=== PATIENT | female | born 1970 | race Two or more races ===

== ENCOUNTER 2016-12-29 17:38 | Emergency (ER) | payer SELFPAY ==
[2016-12-29] MEDS ORDERED: NORMAL SALINE 1000 ML 1,000 ML IV ONE (18:21)
[2016-12-29 18:49] LABS: ABSOLUTE BASOPHILS # (AUTO) 0.1 10^3/uL (0.0-0.2); ABSOLUTE LYMPHOCYTES (AUTO) 1.8 10^3/uL (0.5-4.7); ABSOLUTE MONOCYTES (AUTO) 1.6 10^3/uL (0.1-1.4); ABSOLUTE NEUT (AUTO) 14.2 10^3/uL (1.7-8.2); BASOPHILS % (AUTO) 0.3 % (0-2); EOSINOPHILS % (AUTO) 0.1 % (0-6); HEMATOCRIT 39.9 % (36.0-47.0); HGB HCT DIFFERENCE 2.1; LYMPHOCYTES % (AUTO) 10.3 % (13-45); MEAN CORPUSCULAR HEMOGLOBIN 28.7 pg (27.0-33.4); MEAN CORPUSCULAR VOLUME 82 fl (80-97); RED BLOOD COUNT 4.86 10^6/uL (3.72-5.28); RED CELL DISTRIBUTION WIDTH 13.3 % (11.5-14.0); SEGMENTED NEUTROPHILS % (AUTO) 80.3 % (42-78); WHITE BLOOD COUNT 17.6 10^3/uL (4.0-10.5)
[2016-12-29 18:53] LABS: APPEARANCE,URINE SLIGHTLY-CLOUDY; BILIRUBIN,URINE NEGATIVE (NEGATIVE); GLUCOSE, URINE >=500 mg/dL (NEGATIVE); KETONES,URINE 80 mg/dL (NEGATIVE); LEUKOCYTE ESTERASE,URINE SMALL (NEGATIVE); NITRITE,URINE POSITIVE (NEGATIVE); PROTEIN,URINE 100 mg/dL (NEGATIVE); URINE SPECIFIC GRAVITY 1.022
[2016-12-29 19:08] LABS: ALANINE AMINOTRANSFERASE 25 U/L (9-52); ALBUMIN 3.7 g/dL (3.5-5.0); ALKALINE PHOSPHATASE 147 U/L (38-126); ANION GAP 14 (5-19); ASPARTATE AMINO TRANSFERASE 12 U/L (14-36); BILIRUBIN,DIRECT 0.6 mg/dL (0.0-0.4); BILIRUBIN,TOTAL 1.1 mg/dL (0.2-1.3); BLOOD UREA NITROGEN 14 mg/dL (7-20); CALCIUM 8.9 mg/dL (8.4-10.2); CARBON DIOXIDE 23 mmol/L (22-30); CHLORIDE 92 mmol/L (98-107); CREATININE RESULT 0.56 mg/dL (0.52-1.25); GLUCOSE 350 mg/dL (75-110); POTASSIUM 3.7 mmol/L (3.6-5.0); SODIUM 129.3 mmol/L (137-145); TOTAL PROTEIN 7.2 g/dL (6.3-8.2)
[2016-12-29] MEDS ORDERED: RINGERS SOLUTION,LACTATED 1,000 ML IV ONE (19:17)
[2016-12-29] MEDS ORDERED: CEFTRIAXONE 1 GM/D5W RTU 1 GM/50 ML RTUPB IV ONE (19:18)
[2016-12-29] MEDS ORDERED: INSULIN LISPRO 100 UNIT/ML 3 ML VIAL SUBCUT ONE (20:06)
--- NOTE | 2016-12-29 20:09 | ER Document Report ---
ED General - General Chief Complaint: High Blood Sugar Stated Complaint: BLOOD SUGAR ISSUES Time Seen by Provider: 12/29/16 18:36 Notes: Patient is a 46-year-old female with uva-srvfsrh-[id number] type 2 diabetes who presents with concerns of hypoglycemia and generalized malaise. Patient states that for "many months" she has had high blood sugars and felt quite fatigued. She has not recently seen a primary care doctor stating "they are always closed ". She takes metformin 500 mg twice daily and has been on this regimen for several years. She states that her blood sugars are regularly in the 300s at home. She became concerned today when they elevated into the 4-500s prompting her to come to the emergency department. She notes that she has had some mild dysuria with associated nausea for the past several days. She has had similar symptoms in the past with a urinary tract infection. She has not noted that anything seems to improve or worsen her symptoms. She denies any headache, neck pain, chest pain, fever, altered mental status or vomiting. She has never had to be hospitalized for her diabetes. TRAVEL OUTSIDE OF THE [place] IN LAST 30 DAYS: No - Related Data Allergies/Adverse Reactions: No Known Allergies Allergy (Verified 12/29/16 17:48) Past Medical History - General Information source: Patient - Social History Smoking Status: Current Every Day Smoker Chew tobacco use (# tins/day): Yes Frequency of alcohol use: None Drug Abuse: None Lives with: Family Family History: Reviewed & Not Pertinent - Past Medical History Cardiac Medical History: Reports: Hx Hypertension Endocrine Medical History: Reports: Hx Diabetes Mellitus Type 2 Renal/ Medical History: Denies: Hx Peritoneal Dialysis Surgical Hx: Negative - Immunizations Hx Diphtheria, Pertussis, Tetanus Vaccination: - unknown Review of Systems - Review of Systems Notes: Constitutional: Negative for fever. HENT: Negative for sore throat. Eyes: Negative for visual changes. Cardiovascular: Negative for chest pain. Respiratory: Negative for shortness of breath. Gastrointestinal: Negative for abdominal pain, positive for nausea Genitourinary: Positive for dysuria. Musculoskeletal: Negative for back pain. Skin: Negative for rash. Neurological: Negative for headaches, weakness or numbness. 10 point ROS negative except as marked above and in HPI. Physical Exam - Vital signs Vitals: Temp Pulse Resp BP Pulse Ox 100.3 F 113 H 20 135/85 H 98 12/29/16 17:48 12/29/16 17:48 12/29/16 17:48 12/29/16 17:48 12/29/16 17:48 Interpretation: Tachycardic Notes: PHYSICAL EXAMINATION: GENERAL: Well-appearing, well-nourished and in no acute distress. HEAD: Atraumatic, normocephalic. EYES: Pupils equal round and reactive to light, extraocular movements intact, sclera anicteric, conjunctiva are normal. ENT: nares patent, oropharynx clear without exudates. Moderately dry mucous membranes. NECK: Normal range of motion, supple without lymphadenopathy LUNGS: Breath sounds clear to auscultation bilaterally and equal. No wheezes rales or rhonchi. HEART: Regular rate and rhythm without murmurs ABDOMEN: Soft, nontender, normoactive bowel sounds. No guarding, no rebound. No masses appreciated. EXTREMITIES: Normal range of motion, no pitting or edema. No cyanosis. NEUROLOGICAL: No focal neurological deficits. Moves all extremities spontaneously and on command. PSYCH: Normal mood, normal affect. SKIN: Warm, Dry, normal turgor, no rashes or lesions noted. Course - Re-evaluation Re-evalutation: 12/29/16 20:05 Presentation of hyperglycemia and fatigue. There is no evidence of HHS or diabetic ketoacidosis on laboratories or based on clinical history. Patient's vitals are within normal limits. Patient has had nausea and flank tenderness. Her urinalysis does reveal findings consistent with acute urinary tract infection. A culture has been sent. Treatment with insulin and IV fluids given here in the emergency department with appropriate response of the blood sugar. She was also given a dose of IV ceftriaxone. Patient does have primary care follow-up. Patient was instructed to increase their metformin and advised they will likely need to increase dietary modification and may also need medication changes. Indications to return to emergency department as well as the importance of close outpatient follow-up were discussed at length. Patient verbalized understanding of the need for close follow-up and indications to return to the ED. - Vital Signs Vital signs: Temp Pulse Resp BP Pulse Ox 100.3 F 92 18 104/55 L 98 12/29/16 17:48 12/29/16 21:34 12/29/16 21:34 12/29/16 21:34 12/29/16 21:34 - Laboratory Result Diagrams: 12/29/16 18:37 12/29/16 18:37 Laboratory results interpreted by me: 12/29/16 12/29/16 12/29/16 18:09 18:37 18:37 WBC 17.6 H Seg Neutrophils % 80.3 H Lymphocytes % 10.3 L Absolute Neutrophils 14.2 H Absolute Monocytes 1.6 H Sodium 129.3 L Chloride 92 L Glucose 350 H POC Glucose 338 H Direct Bilirubin 0.6 H AST 12 L Alkaline Phosphatase 147 H Urine Protein Urine Glucose (UA) Urine Ketones Urine Blood Urine Nitrite Urine Urobilinogen Ur Leukocyte Esterase 12/29/16 12/29/16 12/29/16 18:37 20:20 21:17 WBC Seg Neutrophils % Lymphocytes % Absolute Neutrophils Absolute Monocytes Sodium Chloride Glucose POC Glucose 322 H 313 H Direct Bilirubin AST Alkaline Phosphatase Urine Protein 100 H Urine Glucose (UA) >=500 H Urine Ketones 80 H Urine Blood MODERATE H Urine Nitrite POSITIVE H Urine Urobilinogen 2.0 H Ur Leukocyte Esterase SMALL H Discharge - Discharge Clinical Impression: Dehydration Hyperglycemia due to type 2 diabetes mellitus Qualifiers: Diabetes mellitus regional intermodal truck driver insulin use: without regional intermodal truck driver use Qualified Code(s ): E11.65 - Type 2 diabetes mellitus with hyperglycemia Urinary tract infection Qualifiers: Urinary tract infection type: acute cystitis Hematuria presence: with hematuria Qualified Code(s): N30.01 - Acute cystitis with hematuria Condition: Stable Disposition: HOME, SELF-CARE Additional Instructions: You need to followup urgently with your primary care doctor as your blood sugars were dangerously high today. You did not have any evidence of a dangerous condition associated with these blood sugars at this time. However, it is very important that you get your blood sugars under control. Please increase your metformin to 1000 mg twice daily. Your labs also show that you have a urinary tract infection and that you are dehydrated likely from your blood sugar being so high for an extended period of time. You have been started on antibiotics and were given IV fluids here in the emergency department. You should avoid foods that are high in carbohydrates and sugary foods. Please return to emergency department immediately if you develop weakness, persistent vomiting, confusion, or any other symptoms that are concerning to you. Prescriptions: Cephalexin Monohydrate [Keflex 500 mg Capsule] 500 mg PO Q6H 5 Days capsule Metformin HCl [Glucophage 500 mg Tablet] 1,000 mg PO BID #60 tablet
[2016-12-29 21:35] VITALS: BP 104/55
== END 2016-12-29 21:34 | disposition home or self-care (01) ==
LOC: ER 17:38
DX: E11.65 Type 2 diabetes mellitus with hyperglycemia (principal); N30.01 Acute cystitis with hematuria; E86.0 Dehydration; R53.81 Other malaise; R53.83 Other fatigue; R11.0 Nausea; R30.0 Dysuria; I10 Essential (primary) hypertension; F17.210 Nicotine dependence, cigarettes, uncomplicated; Z79.84 Long term (current) use of oral hypoglycemic drugs; R00.0 Tachycardia, unspecified
CPT/HCPCS: 99283; 96375; 96365; 36415; 87086; 82962; 85025; 87088; 80053; 81001; 87186; J1815; J7030; J7120; J0696

== ENCOUNTER 2018-01-06 13:08 | Emergency (ER) | payer SELFPAY ==
--- NOTE | 2018-01-06 13:57 | ER Document Report ---
ED Medical Screen (RME) - General Chief Complaint: Weakness Stated Complaint: WEAKNESS,DIZZY Time Seen by Provider: 01/06/18 13:51 Notes: 47-year-old female patient [id number] diabetic states she is taking her medications which should include insulin, Januvia, metformin along others. She states that her blood sugars have been running 431 recently. [place] [employer]. Said today she has been very tired and weak, no energy and sweating a lot. Her primary care provider is Dr. Will. TRAVEL OUTSIDE OF THE [place] IN LAST 30 DAYS: No - Related Data Allergies/Adverse Reactions: No Known Allergies Allergy (Verified 12/29/16 17:48) Past Medical History - Social History Chew tobacco use (# tins/day): No Frequency of alcohol use: None Drug Abuse: None - Past Medical History Cardiac Medical History: Reports: Hx Hypertension Endocrine Medical History: Reports: Hx Diabetes Mellitus Type 2 Renal/ Medical History: Denies: Hx Peritoneal Dialysis - Immunizations Hx Diphtheria, Pertussis, Tetanus Vaccination: - unknown Physical Exam - Vital signs Vitals: Temp Pulse Resp BP Pulse Ox 98.6 F 80 20 127/83 H 98 01/06/18 13:28 01/06/18 13:28 01/06/18 13:28 01/06/18 13:28 01/06/18 13:28 Course - Vital Signs Vital signs: Temp Pulse Resp BP Pulse Ox 98.6 F 80 20 127/83 H 98 01/06/18 13:28 01/06/18 13:28 01/06/18 13:28 01/06/18 13:28 01/06/18 13:28
[2018-01-06] MEDS ORDERED: NORMAL SALINE 1000 ML 1,000 ML IV PRN (14:35)
[2018-01-06] MEDS ORDERED: MECLIZINE HCL 25 MG TABLET PO ONE (14:35)
--- NOTE | 2018-01-06 14:35 | ER Document Report ---
ED General - General Chief Complaint: Weakness Stated Complaint: WEAKNESS,DIZZY Time Seen by Provider: 01/06/18 13:51 Mode of Arrival: Ambulatory Information source: Patient Notes: 47-year-old female with type 1 diabetes, hypertension presents with complaints of fatigue and dizziness. Patient states that symptoms started just prior to arrival. She states when she stood up she felt like the room was spinning. She denies any associated blurred vision, slurred speech, difficulty with ambulation. She states her last blood sugar reading was over 400. She has been compliant with her insulin and metformin. She denies any recent illness. TRAVEL OUTSIDE OF THE [place] IN LAST 30 DAYS: No - HPI Onset: Just prior to arrival Onset/Duration: Sudden Quality of pain: No pain Severity: None Associated symptoms: Chills, Sweating, Other - Fatigue, dizziness. denies: Chest pain, Headache, Shortness of breath Exacerbated by: Movement Relieved by: Denies Similar symptoms previously: Yes Recently seen / treated by doctor: Yes - Related Data Allergies/Adverse Reactions: No Known Allergies Allergy (Verified 12/29/16 17:48) Past Medical History - General Information source: Patient, [facility] Records - Social History Smoking Status: Current Every Day Smoker Cigarette use (# per day): Yes - 15 Chew tobacco use (# tins/day): No Smoking Education Provided: Yes - Smoking cessation counseling was provided for 4 minutes at the bedside Frequency of alcohol use: None Drug Abuse: None Lives with: Family Family History: Reviewed & Not Pertinent Patient has suicidal ideation: No Patient has homicidal ideation: No - Past Medical History Cardiac Medical History: Reports: Hx Hypertension Endocrine Medical History: Reports: Hx Diabetes Mellitus Type 2 Renal/ Medical History: Denies: Hx Peritoneal Dialysis - Immunizations Hx Diphtheria, Pertussis, Tetanus Vaccination: - unknown Review of Systems - Review of Systems Notes: REVIEW OF SYSTEMS: CONSTITUTIONAL : Denies fever, chills, Denies recent illness. Denies weight loss, recent hospitalizations. EENT: Denies visual changes, eye pain. Denies sore throat, oral lesions, difficulty swallowing. CARDIOVASCULAR: Denies chest pain. Denies palpitations. Denies lower extremity edema. RESPIRATORY: Denies cough. Denies shortness of breath, wheezing. GASTROINTESTINAL: Denies abdominal pain or distention. Denies nausea, vomiting , or diarrhea. Denies blood in vomitus, stools, or per rectum. Denies black, tarry stools. Denies constipation. GENITOURINARY: Denies difficulty urinating, painful urination, frequency, blood in urine, or vaginal discharge. MUSCULOSKELETAL: Denies back or neck pain or stiffness. Denies joint pain or swelling. SKIN: Denies rash, lesions or sores. HEMATOLOGIC : Denies easy bruising or bleeding. LYMPHATIC: Denies swollen glands. NEUROLOGICAL: Denies confusion or altered mental status. Denies loss of consciousness. Denies headache. Denies weakness or paralysis. Denies problems difficulty with ambulation, slurred speech. Denies sensory loss, numbness, or tingling. Denies seizures. PSYCHIATRIC: Denies anxiety or stress. Denies depression, suicidal ideation, or homicidal ideation. Denies visual or auditory hallucinations. Physical Exam - Vital signs Vitals: Temp Pulse Resp BP Pulse Ox 98.6 F 80 20 127/83 H 98 01/06/18 13:28 01/06/18 13:28 01/06/18 13:28 01/06/18 13:28 01/06/18 13:28 - Notes Notes: PHYSICAL EXAMINATION: GENERAL: Well-appearing, well-nourished and in no acute distress. HEAD: Atraumatic, normocephalic. EYES: Pupils equal round and reactive to light, extraocular movements intact, conjunctiva are normal. No nystagmus ENT: Nares patent, oropharynx clear without exudates. Moist mucous membranes. NECK: Normal range of motion, supple without lymphadenopathy LUNGS: Breath sounds clear to auscultation bilaterally and equal. No wheezes rales or rhonchi. HEART: Regular rate and rhythm without murmurs ABDOMEN: Soft, nontender, nondistended abdomen. No guarding, no rebound. No masses appreciated. Female : deferred Musculoskeletal: Normal range of motion, no pitting or edema. No cyanosis. NEUROLOGICAL: Cranial nerves grossly intact. Normal speech, normal gait. Normal sensory, motor exams. NIH-0 PSYCH: Normal mood, normal affect. SKIN: Warm, Dry, normal turgor, no rashes or lesions noted. Course - Re-evaluation Re-evalutation: Laboratory 01/06/18 01/06/18 01/06/18 14:23 14:42 14:42 WBC 12.6 H RBC 5.09 Hgb 14.5 Hct 41.8 MCV 82 MCH 28.4 MCHC 34.6 RDW 13.2 Plt Count 293 Seg Neutrophils % 61.0 Lymphocytes % 30.6 Monocytes % 6.5 Eosinophils % 1.3 Basophils % 0.6 Absolute Neutrophils 7.7 Absolute Lymphocytes 3.9 Absolute Monocytes 0.8 Absolute Eosinophils 0.2 Absolute Basophils 0.1 Sodium 136.4 L Potassium 4.4 Chloride 102 Carbon Dioxide 24 Anion Gap 10 BUN 20 Creatinine 0.57 Est GFR ( Amer) > 60 Est GFR (Non-Af Amer) > 60 Glucose 319 H POC Glucose Hemoglobin A1c % Calcium 9.3 Total Bilirubin 0.5 Direct Bilirubin 0.5 H Neonat Total Bilirubin Not Reportable Neonat Direct Bilirubin Not Reportable Neonat Indirect Bili Not Reportable AST 15 ALT 26 Alkaline Phosphatase 119 Creatine Kinase 55 Troponin I Total Protein 7.4 Albumin 4.1 Urine Color STRAW Urine Appearance SLIGHTLY-CLOUDY Urine pH 5.0 Ur Specific [place] 1.016 Urine Protein NEGATIVE Urine Glucose (UA) >=500 H Urine Ketones NEGATIVE Urine Blood NEGATIVE Urine Nitrite NEGATIVE Urine Bilirubin NEGATIVE Urine Urobilinogen NEGATIVE Ur Leukocyte Esterase TRACE H Urine WBC (Auto) 3 Urine RBC (Auto) 1 Urine Bacteria (Auto) TRACE Squamous Epi Cells Auto 5 Urine Ascorbic Acid NEGATIVE 01/06/18 01/06/18 01/06/18 14:42 14:42 17:10 WBC RBC Hgb Hct MCV MCH MCHC RDW Plt Count Seg Neutrophils % Lymphocytes % Monocytes % Eosinophils % Basophils % Absolute Neutrophils Absolute Lymphocytes Absolute Monocytes Absolute Eosinophils Absolute Basophils Sodium Potassium Chloride Carbon Dioxide Anion Gap BUN Creatinine Est GFR ( Amer) Est GFR (Non-Af Amer) Glucose POC Glucose 225 H Hemoglobin A1c % 10.8 H Calcium Total Bilirubin Direct Bilirubin Neonat Total Bilirubin Neonat Direct Bilirubin Neonat Indirect Bili AST ALT Alkaline Phosphatase Creatine Kinase Troponin I < 0.012 Total Protein Albumin Urine Color Urine Appearance Urine pH Ur Specific [place] Urine Protein Urine Glucose (UA) Urine Ketones Urine Blood Urine Nitrite Urine Bilirubin Urine Urobilinogen Ur Leukocyte Esterase Urine WBC (Auto) Urine RBC (Auto) Urine Bacteria (Auto) Squamous Epi Cells Auto Urine Ascorbic Acid 47-year-old type I diabetic presents with complaint of fatigue, dizziness. She describes the dizziness as the room spinning. She states she has had 2 episodes today which self resolved. She denies prior similar symptoms. Vital signs reviewed upon arrival and within normal limits. Patient does not appear toxic or dehydrated. She is in no acute distress. Patient has a normal neurologic exam, normal gait. Patient was provided IV fluids and meclizine. Patient has a mild leukocytosis. CMP does show market elevation of her glucose without evidence of DKA. Hemoglobin A1c is greater than 10. Repeat glucose after fluid hydration was 225. 01/06/18 17:02 Patient reports resolution of her dizziness after 1 dose of meclizine. She is sitting up smiling and thankful. She states she is feeling much better and feels comfortable with discharge home. Patient was evaluated and treated as appropriate for the patient's presenting symptoms and complaint, with consideration of any critical or life threatening conditions that may be associated with their obtained history and exam as noted above. All results were discussed with patient. Patient provided the opportunity to ask questions, and express concerns. Patient was educated on treatments based on their presumed diagnosis as noted above. At this time we will discharge the patient with return precautions and follow-up recommendations. Verbal discharge instructions given a the bedside. Medication warnings reviewed. Patient is in agreement with this plan and has verbalized understanding of return precautions. After careful consideration I feel that that patient can be safely discharged from the emergency department, they were advised to followup with a primary care physician in 2-3 days. Dictation on this chart was performed using voice recognition software and may result in unintended grammatical, spelling, syntax or errors. 01/06/18 20:49 - Vital Signs Vital signs: Temp Pulse Resp BP Pulse Ox 97.8 F 80 20 125/80 98 01/06/18 17:17 01/06/18 17:17 01/06/18 17:17 01/06/18 17:17 01/06/18 17:17 - Laboratory Result Diagrams: 01/06/18 14:42 01/06/18 14:42 Laboratory results interpreted by me: 01/06/18 01/06/18 01/06/18 14:23 14:42 14:42 WBC 12.6 H Sodium 136.4 L Glucose 319 H POC Glucose Hemoglobin A1c % Direct Bilirubin 0.5 H Urine Glucose (UA) >=500 H Ur Leukocyte Esterase TRACE H 01/06/18 01/06/18 14:42 17:10 WBC Sodium Glucose POC Glucose 225 H Hemoglobin A1c % 10.8 H Direct Bilirubin Urine Glucose (UA) Ur Leukocyte Esterase - Diagnostic Test Radiology reviewed: Image reviewed, Reports reviewed Discharge - Discharge Clinical Impression: Hyperglycemia due to type 1 diabetes mellitus BPPV (benign paroxysmal positional vertigo) Qualifiers: Laterality: unspecified laterality Qualified Code(s): H81.10 - Benign paroxysmal vertigo, unspecified ear Fatigue Qualifiers: Fatigue type: unspecified Qualified Code(s): R53.83 - Other fatigue Condition: Good Disposition: HOME, SELF-CARE Instructions: Hyperglycemia ([facility]), Vertigo ([facility]) Additional Instructions: You were seen today for lightheadedness/dizziness. The exact cause of your symptoms is unclear but your workup here is reassuring without any concerning findings. Please follow closely with your primary care physician in the next 1- 3 days. Return if you pass out, have additional episodes of lightheadedness, develop weakness/numbness, have persistent vomiting, chest pain, shortness of breath or any other symptoms that are concerning to you Follow up with your [id number] hours for further care or return to the ED IMMEDIATELY if symptoms worsen or you have any concerns. If you cannot afford to follow up with your primary care physician a list of low cost clinics have been provided at the end of your discharge papers as well. Most prescribed medications have multiple side effects. The safest thing to do is when filling your prescription speak to your pharmacist regarding possible interactions with your normal home medications and over the counter medications such as Ibuprofen, Tylenol, Benadryl. If you experience any symptoms that cause you discomfort or concern you should discontinue the medication immediately and return to the emergency room or call your primary care physician. Prescriptions: Meclizine HCl 25 mg PO Q8H PRN #12 tab.chew PRN Reason: Dizziness Forms: Elevated Blood Pressure
[2018-01-06 14:45] LABS: APPEARANCE,URINE SLIGHTLY-CLOUDY; BILIRUBIN,URINE NEGATIVE (NEGATIVE); COLOR,URINE STRAW; GLUCOSE, URINE >=500 mg/dL (NEGATIVE); KETONES,URINE NEGATIVE (NEGATIVE); LEUKOCYTE ESTERASE,URINE TRACE (NEGATIVE); NITRITE,URINE NEGATIVE (NEGATIVE); PROTEIN,URINE NEGATIVE (NEGATIVE); URINE SPECIFIC GRAVITY 1.016; UROBILINOGEN,URINE NEGATIVE mg/dL (<2.0)
[2018-01-06 14:57] LABS: ABSOLUTE BASOPHILS # (AUTO) 0.1 10^3/uL (0.0-0.2); ABSOLUTE EOSINOPHILS # (AUTO) 0.2 10^3/uL (0.0-0.6); ABSOLUTE LYMPHOCYTES (AUTO) 3.9 10^3/uL (0.5-4.7); ABSOLUTE MONOCYTES (AUTO) 0.8 10^3/uL (0.1-1.4); ABSOLUTE NEUT (AUTO) 7.7 10^3/uL (1.7-8.2); BASOPHILS % (AUTO) 0.6 % (0-2); EOSINOPHILS % (AUTO) 1.3 % (0-6); HEMATOCRIT 41.8 % (36.0-47.0); HEMOGLOBIN 14.5 g/dL (12.0-15.5); LYMPHOCYTES % (AUTO) 30.6 % (13-45); MEAN CORPUSCULAR HEMOGLOBIN 28.4 pg (27.0-33.4); MEAN CORPUSCULAR HGB CONC 34.6 g/dL (32.0-36.0); MEAN CORPUSCULAR VOLUME 82 fl (80-97); MONOCYTES % (AUTO) 6.5 % (3-13); PLATELET COUNT 293 10^3/uL (150-450); RED BLOOD COUNT 5.09 10^6/uL (3.72-5.28); RED CELL DISTRIBUTION WIDTH 13.2 % (11.5-14.0); TOTAL CELLS COUNTED % (AUTO) 100 %; WHITE BLOOD COUNT 12.6 10^3/uL (4.0-10.5)
[2018-01-06 15:14] LABS: ALANINE AMINOTRANSFERASE 26 U/L (9-52); ALBUMIN 4.1 g/dL (3.5-5.0); ALKALINE PHOSPHATASE 119 U/L (38-126); ANION GAP 10 (5-19); ASPARTATE AMINO TRANSFERASE 15 U/L (14-36); BILIRUBIN,DIRECT 0.5 mg/dL (0.0-0.4); BILIRUBIN,TOTAL 0.5 mg/dL (0.2-1.3); BLOOD UREA NITROGEN 20 mg/dL (7-20); CALCIUM 9.3 mg/dL (8.4-10.2); CARBON DIOXIDE 24 mmol/L (22-30); CHLORIDE 102 mmol/L (98-107); CREATINE KINASE 55 U/L (30-135); GLUCOSE 319 mg/dL (75-110); POTASSIUM 4.4 mmol/L (3.6-5.0); SODIUM 136.4 mmol/L (137-145); TOTAL PROTEIN 7.4 g/dL (6.3-8.2)
[2018-01-06 17:19] VITALS: BP 125/80
--- NOTE | 2018-01-07 19:30 | EKG REPORT ---
SEVERITY:- NORMAL ECG - SINUS RHYTHM : Confirmed by: Flor Abarca 07-Jan-2018 19:29:57
== END 2018-01-06 17:21 | disposition home or self-care (01) ==
LOC: ER 13:08
DX: H81.10 Benign paroxysmal vertigo, unspecified ear (principal); E10.65 Type 1 diabetes mellitus with hyperglycemia; Z79.84 Long term (current) use of oral hypoglycemic drugs; R53.83 Other fatigue; I10 Essential (primary) hypertension; R68.83 Chills (without fever); R61 Generalized hyperhidrosis; D72.829 Elevated white blood cell count, unspecified; F17.210 Nicotine dependence, cigarettes, uncomplicated; Z71.6 Tobacco abuse counseling
CPT/HCPCS: 93005; 99406; 99285; 96360; 36415; 82962; 82550; 85025; 80053; 81001; 84484; 83036; 93010; J7030

== ENCOUNTER 2018-04-27 20:22 | Emergency (ER) | payer SELFPAY ==
[2018-04-27] MEDS ORDERED: NORMAL SALINE 1000 ML 1,000 ML IV ONE (20:45)
--- NOTE | 2018-04-27 20:46 | ER Document Report ---
ED Medical Screen (RME) - General Chief Complaint: High Blood Sugar Stated Complaint: HIGH BLOOD SUGAR Time Seen by Provider: 04/27/18 20:44 Notes: 47-year-old female with a history of insulin in the 500+ ranges today. States she feels weak but denies vomiting, fever, chest pain, or any other complaints. TRAVEL OUTSIDE OF THE [place] IN LAST 30 DAYS: No - Related Data Allergies/Adverse Reactions: No Known Allergies Allergy (Verified 12/29/16 17:48) Past Medical History - Social History Chew tobacco use (# tins/day): No Frequency of alcohol use: None Drug Abuse: None - Past Medical History Cardiac Medical History: Reports: Hx Hypertension Endocrine Medical History: Reports: Hx Diabetes Mellitus Type 2 Renal/ Medical History: Denies: Hx Peritoneal Dialysis - Immunizations Hx Diphtheria, Pertussis, Tetanus Vaccination: - unknown Physical Exam - Vital signs Vitals: Temp Pulse Resp BP Pulse Ox 98.3 F 92 16 141/87 H 97 04/27/18 20:33 04/27/18 20:33 04/27/18 20:33 04/27/18 20:33 04/27/18 20:33 - General General appearance: Appears well In distress: None - Cardiovascular Rhythm: Regular. No: Tachycardia Heart sounds: Normal auscultation, S1 appreciated, S2 appreciated Course - Vital Signs Vital signs: Temp Pulse Resp BP Pulse Ox 98.3 F 92 16 141/87 H 97 04/27/18 20:33 04/27/18 20:33 04/27/18 20:33 04/27/18 20:33 04/27/18 20:33
[2018-04-27 21:37] LABS: ABSOLUTE BASOPHILS # (AUTO) 0.1 10^3/uL (0.0-0.2); ABSOLUTE EOSINOPHILS # (AUTO) 0.1 10^3/uL (0.0-0.6); ABSOLUTE LYMPHOCYTES (AUTO) 3.9 10^3/uL (0.5-4.7); ABSOLUTE MONOCYTES (AUTO) 0.7 10^3/uL (0.1-1.4); ABSOLUTE NEUT (AUTO) 5.6 10^3/uL (1.7-8.2); BASOPHILS % (AUTO) 0.6 % (0-2); EOSINOPHILS % (AUTO) 1.3 % (0-6); HEMATOCRIT 43.4 % (36.0-47.0); HEMOGLOBIN 14.8 g/dL (12.0-15.5); LYMPHOCYTES % (AUTO) 37.3 % (13-45); MEAN CORPUSCULAR HEMOGLOBIN 28.5 pg (27.0-33.4); MEAN CORPUSCULAR HGB CONC 34.1 g/dL (32.0-36.0); MEAN CORPUSCULAR VOLUME 84 fl (80-97); MONOCYTES % (AUTO) 6.8 % (3-13); PLATELET COUNT 286 10^3/uL (150-450); RED BLOOD COUNT 5.19 10^6/uL (3.72-5.28); TOTAL CELLS COUNTED % (AUTO) 100 %; WHITE BLOOD COUNT 10.4 10^3/uL (4.0-10.5)
[2018-04-27 21:39] LABS: VENOUS BLOOD HCO3 28.1 mmol/L (20-32); VENOUS BLOOD PCO2 54.6 mmHg (35-63); VENOUS BLOOD PH 7.33 (7.30-7.42)
[2018-04-27 21:42] LABS: APPEARANCE,URINE CLEAR; BILIRUBIN,URINE NEGATIVE (NEGATIVE); COLOR,URINE STRAW; GLUCOSE, URINE >=500 mg/dL (NEGATIVE); KETONES,URINE NEGATIVE (NEGATIVE); LEUKOCYTE ESTERASE,URINE NEGATIVE (NEGATIVE); NITRITE,URINE NEGATIVE (NEGATIVE); PROTEIN,URINE NEGATIVE (NEGATIVE); URINE SPECIFIC GRAVITY 1.028; UROBILINOGEN,URINE NEGATIVE mg/dL (<2.0)
[2018-04-27 21:54] LABS: ANION GAP 9 (5-19); BLOOD UREA NITROGEN 20 mg/dL (7-20); CALCIUM 9.3 mg/dL (8.4-10.2); CARBON DIOXIDE 28 mmol/L (22-30); CHLORIDE 97 mmol/L (98-107); POTASSIUM 4.3 mmol/L (3.6-5.0); SODIUM 133.9 mmol/L (137-145)
[2018-04-27 22:02] LABS: GLUCOSE 505 mg/dL (75-110)
[2018-04-27] MEDS ORDERED: INSULIN REG, HUMAN 100 UNIT/ML 3 ML VIAL (PYX) SUBCUT ONE (22:28)
--- NOTE | 2018-04-27 22:47 | ER Document Report ---
ED General - General Chief Complaint: High Blood Sugar Stated Complaint: HIGH BLOOD SUGAR Time Seen by Provider: 04/27/18 20:44 Notes: Patient is a 47-year-old female presents with complaint of high blood sugar. She says she has not taken her medications all week. She actually has her medications with her. She is on metformin. She also does shot of insulin at nighttime a shot of insulin in the morning. She said today she went by the [facility] and had a blood sugar checked and saw that it was high therefore she did take a dose of her metformin tonight at 7 PM. She then came to the ER. She says she just has some generalized weakness but no other complaints. No headache. No chest pain. No vomiting. No focality to her weakness. No other complaints at this time. TRAVEL OUTSIDE OF THE [place] IN LAST 30 DAYS: No - Related Data Allergies/Adverse Reactions: No Known Allergies Allergy (Verified 12/29/16 17:48) Past Medical History - Social History Smoking Status: Current Every Day Smoker Chew tobacco use (# tins/day): No Frequency of alcohol use: None Drug Abuse: None Family History: Reviewed & Not Pertinent Patient has suicidal ideation: No Patient has homicidal ideation: No - Past Medical History Cardiac Medical History: Reports: Hx Hypertension Endocrine Medical History: Reports: Hx Diabetes Mellitus Type 2 Renal/ Medical History: Denies: Hx Peritoneal Dialysis - Immunizations Hx Diphtheria, Pertussis, Tetanus Vaccination: - unknown Review of Systems - Review of Systems Notes: My Normal Review Basic REVIEW OF SYSTEMS: CONSTITUTIONAL : Denies fever, chills, or sweats. Denies recent illness. EENT: Denies eye, ear, throat, or mouth pain or symptoms. Denies nasal or sinus congestion. CARDIOVASCULAR: Denies chest pain. RESPIRATORY: Denies cough, cold, or chest congestion. Denies shortness of breath, difficulty breathing, or wheezing. GASTROINTESTINAL: Denies abdominal pain. Denies nausea, vomiting, or diarrhea. GENITOURINARY: Denies difficulty urinating, painful urination, burning, frequency, or blood in urine. MUSCULOSKELETAL: Denies neck or back pain or joint pain or swelling. SKIN: Denies rash or skin lesions. NEUROLOGICAL: Denies altered mental status or loss of consciousness. Denies headache. Denies weakness or paralysis or loss of use of either side. Denies problems with gait or speech. Denies sensory or motor loss. ALL OTHER SYSTEMS REVIEWED AND NEGATIVE. Physical Exam - Vital signs Vitals: Temp Pulse Resp BP Pulse Ox 98.3 F 92 16 141/87 H 97 04/27/18 20:33 04/27/18 20:33 04/27/18 20:33 04/27/18 20:33 04/27/18 20:33 - Notes Notes: General Appearance: Well nourished, alert, cooperative, no acute distress, no obvious discomfort. Well-appearing. Vitals: reviewed, See vital signs table. Head: no swelling or tenderness to the head Eyes: PERRL, EOMI, Conjuctiva clear Neck: Supple, no neck tenderness, No thyromegaly Lungs: Scattered wheezing, No rales, No rhonci, No accessory muscle use, good air exchange bilaterally. Heart: Normal rate, Regular rythm, No murmur, no rub Abdomen: Normal BS, soft, No rigidity, No abdominal tenderness, No guarding, no rebound, no abdominal masses, no organomegaly Extremities: strength 5/5 in all extremities, good pulses in all extremities, no swelling or tenderness in the extremities, no edema. Skin: warm, dry, appropriate color, no rash Neuro: speech clear, oriented x 3, normal affect, responds appropriately to questions. Symmetric facial movement. Patient moves all 4 extremities without difficulty. Distal sensation intact. Course - Re-evaluation Re-evalutation: 04/28/18 06:26 Patient continues to be asymptomatic and looks well. Blood sugars downtrending appropriately. I talked at length about the importance of taking her medicati ons so that her blood sugar does not should apply. Patient agrees with this. Patient be discharged home. She strongly encouraged to return to ER if she has any symptoms or if she has recurrent high blood sugars despite taking her medications. Patient agrees with plan will be discharged home. Dictation of this chart was performed using voice recognition software; therefore, there may be some unintended grammatical errors. - Vital Signs Vital signs: Temp Pulse Resp BP Pulse Ox 98.2 F 92 15 105/77 96 04/28/18 00:35 04/27/18 20:33 04/28/18 00:32 04/28/18 00:32 04/28/18 00:32 - Laboratory Result Diagrams: 04/27/18 21:25 04/27/18 21:25 Laboratory results interpreted by me: 04/27/18 04/27/18 04/27/18 21:25 21:25 23:31 Sodium 133.9 L Chloride 97 L Creatinine 0.44 L Glucose 505 H* POC Glucose 352 H Urine Glucose (UA) >=500 H Discharge - Discharge Clinical Impression: Hyperglycemia Disposition: HOME, SELF-CARE Additional Instructions: Please take your medications as prescribed and do not miss your dosages of your medications. Please return to the ER if you have worsening weakness, fevers, vomiting, or if you feel that you are worsening in any way. Please recheck your blood sugar in the morning to make sure it is staying below 300.
[2018-04-28 00:36] VITALS: BP 105/77
== END 2018-04-28 00:35 | disposition home or self-care (01) ==
LOC: ER 20:22
DX: E11.65 Type 2 diabetes mellitus with hyperglycemia (principal); Z79.4 Long term (current) use of insulin; Z79.84 Long term (current) use of oral hypoglycemic drugs; F17.200 Nicotine dependence, unspecified, uncomplicated; I10 Essential (primary) hypertension
CPT/HCPCS: 99285; 96360; 36415; 82962; 85025; 80048; 81001; 82803; J1815; J7030

== ENCOUNTER 2018-10-30 15:45 | Inpatient (IN) | payer OTHER, MEDICAID ==
[2018-10-30] MEDS ORDERED: DIPH/PERTUSS(ACELL)/TETANUS VAC/PF 0.5 ML SYR (>=10YO) IM ONE (17:00)
--- NOTE | 2018-10-30 17:00 | ER Document Report ---
Addendum entered and electronically signed by ANIL AU PA-C 10/30/18 18:33: Discharge - Discharge Clinical Impression: Foreign body (FB) in soft tissue Condition: Good Disposition: ADMITTED INPATIENT Unit Admitted: Surgical Floor Original Note: HPI - HPI Patient complains to provider of: glass in foot x 2 weeks Time Seen by Provider: 10/30/18 16:51 Pain Level: 5 Context: 48-year-old female presents emergency department after stepping glass 2 weeks ago concerned that she has retained glass in her right foot. She was at home when it happened. She tried to remove which she could and soak her foot but she feels that there is still something in there. She denies any fevers or chills, complains of some swelling and warmth to the right heel, is able to ambulate but cannot bear full weight on the heel. She states her last tetanus was in 2006. - REPRODUCTIVE Reproductive: DENIES: : Past Medical History - Social History Smoking Status: Unknown if Ever Smoked Family History: Reviewed & Not Pertinent Patient has suicidal ideation: No Patient has homicidal ideation: No - Past Medical History Cardiac Medical History: Reports: Hx Hypertension Endocrine Medical History: Reports: Hx Diabetes Mellitus Type 2 Renal/ Medical History: Denies: Hx Peritoneal Dialysis - Immunizations Hx Diphtheria, Pertussis, Tetanus Vaccination: - unknown Vertical Provider Document - CONSTITUTIONAL Notes: PHYSICAL EXAMINATION: Reviewed vital signs and charting by RN GENERAL: Alert, interacts well. No acute distress. HEAD: Normocephalic, atraumatic. EYES: Pupils equal and round. Extraocular movements intact. ENT: Oral mucosa moist, tongue midline. EXTREMITIES: Moves all 4 extremities spontaneously. Mild edema of the right heel and warmth compared to the left. There is a small area on the bottom of her heel that is black could represent a foreign body PSYCH: Normal affect, normal mood. SKIN: Warm, dry, normal turgor. No rashes or lesions noted. - INFECTION CONTROL TRAVEL OUTSIDE OF THE [place] IN LAST 30 DAYS: No Course - Re-evaluation Re-evalutation: 10/30/18 17:00 Overall well-appearing, there is edema and warmth of the right heel. Plan is to get an x-ray and give patient tetanus booster. 10/30/18 17:38 X-ray showed a 4 mm radiopaque foreign body. Looks to be 2 to 3 mm deep into the skin. I called Dr. Menard, surgical list who said he will come and take a look at the patient. - Vital Signs Vital signs: Temp Pulse Resp BP Pulse Ox 98.9 F 104 H 16 125/84 99 10/30/18 15:49 10/30/18 15:49 10/30/18 15:49 10/30/18 15:49 10/30/18 15:49 Discharge - Discharge Clinical Impression: Foreign body (FB) in soft tissue Condition: Good Disposition: ADMITTED INPATIENT Admitting Provider: Surgicalist Unit Admitted: OR
--- NOTE | 2018-10-30 17:24 | RADIOLOGY REPORT (SQ) ---
EXAM DESCRIPTION: FOOT RIGHT COMPLETE COMPLETED DATE/TIME: 10/30/2018 5:09 pm REASON FOR STUDY: ?foreign body calcaneus COMPARISON: None. EXAM PARAMETERS: NUMBER OF VIEWS: Three views. TECHNIQUE: AP, lateral and oblique radiographic images acquired of the right foot. LIMITATIONS: None. FINDINGS: MINERALIZATION: Normal. BONES: No acute fracture or dislocation. No worrisome bone lesions. JOINTS: No effusion. SOFT TISSUES: 4 mm radiopaque foreign body the posterior calcaneal subcutaneous soft tissues. OTHER: No other significant finding. IMPRESSION: NO FRACTURE. 4 mm radiopaque foreign body the posterior calcaneal subcutaneous soft tiss ues. TECHNICAL DOCUMENTATION: JOB ID: [id number] [id number] 2010 [employer]- All Rights Reserved Reading location - IP/workstation name: [email or web address]
--- NOTE | 2018-10-30 19:22 | PDOC H&P ---
History of Present Illness Admission Date/PCP: 10/30/18 18:47 Patient complains of: pains right heel History of Present Illness: ANGUS SCHRADER is a 48 year old female who is a type II diabetic stepped on a piece of glass about 2 weeks ago. She thought she removed the piece of glass but in the past week started to have some discomfort along the right heel. Today she is not able to put her shoe on because of severe pains and therefore went to ED. X-rays of the right foot revealed foreign body on the right heel about a 4 mm piece of glass. She claims she does have some chilly sensation but no definite fever. She is supposed to have the foreign body removed tonight but she drank a whole bottle of soda and now were prior to scheduled surgery at 7 PM because of this she is going to be admitted and n.p.o. from midnight and to have surgery for removal of the foreign body on the right heel tomorrow. Past Medical History Cardiac Medical History: Reports: Hypertension Endocrine Medical History: Reports: Diabetes Mellitus Type 2 Social History Smoking Status: Current Every Day Smoker Cigarettes Packs Per Day: 1 Family History Family History: Reviewed & Not Pertinent Parental Family History Reviewed: Yes - has DM Children Family History Reviewed: No Sibling(s) Family History Reviewed.: No Medication/Allergy Home Medications: Lisinopril [Prinivil 10 mg Tablet] 10 mg PO DAILY #30 tablet 07/03/15 Metformin HCl [Glucophage 500 mg Tablet] 500 mg PO BID #60 tablet 07/03/15 Cephalexin Monohydrate [Keflex 500 mg Capsule] 500 mg PO Q6H 5 Days capsule 12/29/16 Metformin HCl [Glucophage 500 mg Tablet] 1,000 mg PO BID #60 tablet 12/29/16 Meclizine HCl 25 mg PO Q8H PRN #12 tab.chew 01/06/18 Allergies/Adverse Reactions: No Known Allergies Allergy (Verified 10/30/18 15:46) Review of Systems Constitutional: PRESENT: as per HPI Physical Exam Vital Signs: Temp Pulse Resp BP Pulse Ox 98.9 F 104 H 16 125/84 99 10/30/18 15:49 10/30/18 15:49 10/30/18 15:49 10/30/18 15:49 10/30/18 15:49 Intake & Output 10/29/18 10/30/18 10/31/18 06:59 06:59 06:59 Weight 68.7 kg General appearance: PRESENT: mild distress Head exam: PRESENT: atraumatic Eye exam: PRESENT: conjunctiva pink Mouth exam: PRESENT: moist Neck exam: PRESENT: full ROM Respiratory exam: PRESENT: clear to auscultation tanya Cardiovascular exam: PRESENT: RRR Pulses: PRESENT: normal radial pulses Vascular exam: PRESENT: normal capillary refill GI/Abdominal exam: PRESENT: soft Rectal exam: PRESENT: deferred Extremities exam: PRESENT: other - Right heel is very tender with puncture cuca on the mid heel area Results Impressions: Foot X-Ray 10/30/18 16:57 IMPRESSION: NO FRACTURE. 4 mm radiopaque foreign body the posterior calcaneal subcutaneous soft tissues. Assessment & Plan - Diagnosis (1) Diabetes mellitus type 2 in nonobese Is this a current diagnosis for this admission?: Yes (2) Hypertension Is this a current diagnosis for this admission?: Yes (3) Foreign body (FB) in soft tissue Is this a current diagnosis for this admission?: Yes - Time Time Spent: 30 to 50 Minutes - Inpatient Certification Medical Necessity: Need for Pain Control, Need for IV Antibiotics, Need for Surgery - Plan Summary Plan Summary: For removal of foreign body(glass) from right heel tomorrow Start IV antibiotic
[2018-10-30] MEDS ORDERED: VANCOMYCIN HCL 0 MG in DEXTROSE 5%-WATER 250 ML IV NR (19:30)
[2018-10-30] MEDS ORDERED: DEXTROSE 50%-WATER 25 GM/50 ML DISP.SYRIN IV PRN ×2 (19:32)
[2018-10-30] MEDS ORDERED: GLUCAGON,HUMAN RECOMB 1 MG INJ SUBCUT PRN (19:32)
[2018-10-30] MEDS ORDERED: DEXTROSE 40% GEL 15 GM TUBE PO PRN ×2 (19:32)
[2018-10-30] MEDS ORDERED: VANCOMYCIN HCL 1,000 MG in DEXTROSE 5%-WATER 250 ML IV ONE (21:00)
[2018-10-30] MEDS: KETOROLAC TROMETHAMINE INJ/PF 30 MG/1 ML SDV IV SCH (21:24)
[2018-10-30 21:31] LABS: ABSOLUTE BASOPHILS # (AUTO) 0.1 10^3/uL (0.0-0.2); ABSOLUTE EOSINOPHILS # (AUTO) 0.2 10^3/uL (0.0-0.6); ABSOLUTE LYMPHOCYTES (AUTO) 4.8 10^3/uL (0.5-4.7); ABSOLUTE MONOCYTES (AUTO) 0.9 10^3/uL (0.1-1.4); ABSOLUTE NEUT (AUTO) 12.1 10^3/uL (1.7-8.2); BASOPHILS % (AUTO) 0.6 % (0-2); EOSINOPHILS % (AUTO) 1.1 % (0-6); HEMOGLOBIN 12.4 g/dL (12.0-15.5); LYMPHOCYTES % (AUTO) 26.2 % (13-45); MEAN CORPUSCULAR HEMOGLOBIN 27.8 pg (27.0-33.4); MEAN CORPUSCULAR HGB CONC 33.6 g/dL (32.0-36.0); MEAN CORPUSCULAR VOLUME 83 fl (80-97); MONOCYTES % (AUTO) 5.2 % (3-13); PLATELET COUNT 372 10^3/uL (150-450); RED BLOOD COUNT 4.47 10^6/uL (3.72-5.28); RED CELL DISTRIBUTION WIDTH 13.6 % (11.5-14.0); SEGMENTED NEUTROPHILS % (AUTO) 66.9 % (42-78); TOTAL CELLS COUNTED % (AUTO) 100 %; WHITE BLOOD COUNT 18.1 10^3/uL (4.0-10.5)
[2018-10-30 21:47] LABS: ALANINE AMINOTRANSFERASE 21 U/L (9-52); ALBUMIN 4.2 g/dL (3.5-5.0); ALKALINE PHOSPHATASE 100 U/L (38-126); ANION GAP 6 (5-19); ASPARTATE AMINO TRANSFERASE 23 U/L (14-36); BILIRUBIN,DIRECT 0.3 mg/dL (0.0-0.4); BILIRUBIN,TOTAL 0.3 mg/dL (0.2-1.3); BLOOD UREA NITROGEN 13 mg/dL (7-20); CALCIUM 9.2 mg/dL (8.4-10.2); CARBON DIOXIDE 27 mmol/L (22-30); CHLORIDE 104 mmol/L (98-107); GLUCOSE 187 mg/dL (75-110); POTASSIUM 3.6 mmol/L (3.6-5.0); TOTAL PROTEIN 7.7 g/dL (6.3-8.2)
[2018-10-31] MEDS: RINGERS SOLUTION,LACTATED 1,000 ML IV PRN ×2 (00:15→06:59)
[2018-10-31] MEDS: KETOROLAC TROMETHAMINE INJ/PF 30 MG/1 ML SDV IV SCH ×3 (06:00→22:18)
[2018-10-31 06:21] LABS: ABSOLUTE BASOPHILS # (AUTO) 0.1 10^3/uL (0.0-0.2); ABSOLUTE EOSINOPHILS # (AUTO) 0.3 10^3/uL (0.0-0.6); ABSOLUTE LYMPHOCYTES (AUTO) 3.7 10^3/uL (0.5-4.7); ABSOLUTE NEUT (AUTO) 7.1 10^3/uL (1.7-8.2); BASOPHILS % (AUTO) 0.6 % (0-2); EOSINOPHILS % (AUTO) 2.1 % (0-6); HEMATOCRIT 34.4 % (36.0-47.0); HEMOGLOBIN 11.7 g/dL (12.0-15.5); LYMPHOCYTES % (AUTO) 30.8 % (13-45); MEAN CORPUSCULAR HEMOGLOBIN 28.1 pg (27.0-33.4); MEAN CORPUSCULAR HGB CONC 34.1 g/dL (32.0-36.0); MEAN CORPUSCULAR VOLUME 83 fl (80-97); MONOCYTES % (AUTO) 7.9 % (3-13); PLATELET COUNT 339 10^3/uL (150-450); RED BLOOD COUNT 4.17 10^6/uL (3.72-5.28); RED CELL DISTRIBUTION WIDTH 13.5 % (11.5-14.0); SEGMENTED NEUTROPHILS % (AUTO) 58.6 % (42-78); TOTAL CELLS COUNTED % (AUTO) 100 %; WHITE BLOOD COUNT 12.2 10^3/uL (4.0-10.5)
[2018-10-31 06:46] LABS: ANION GAP 7 (5-19); BLOOD UREA NITROGEN 16 mg/dL (7-20); CALCIUM 9.2 mg/dL (8.4-10.2); CARBON DIOXIDE 26 mmol/L (22-30); CHLORIDE 106 mmol/L (98-107); GLUCOSE 173 mg/dL (75-110); POTASSIUM 4.5 mmol/L (3.6-5.0)
[2018-10-31] MEDS ORDERED: GLYCOPYRROLATE 1 MG/5 ML VIAL ONE (09:19)
[2018-10-31] MEDS ORDERED: VANCOMYCIN HCL 1,250 MG in DEXTROSE 5%-WATER 250 ML IV SCH (10:00)
[2018-10-31] MEDS ORDERED: ALBUTEROL SULFATE 0.083% NEB 2.5 MG/3 ML AMPUL NEB ONE (11:54)
[2018-10-31] MEDS ORDERED: BUPIVACAINE HCL 0.25% /EPINEPHRINE INJ/PF 30 ML SDV ONE (12:01)
[2018-10-31] MEDS ORDERED: ONDANSETRON HCL INJ/PF 4 MG/2 ML SDV ONE (12:22)
[2018-10-31] MEDS ORDERED: MIDAZOLAM 2 MG/2 ML INJ ONE (12:22)
[2018-10-31] MEDS ORDERED: FENTANYL CITRATE INJ/PF 100 MCG/2 ML AMPUL ONE (12:22)
[2018-10-31] MEDS ORDERED: PROPOFOL INJ 200 MG/20 ML VIAL IV ONE ×2 (12:23→12:40)
--- NOTE | 2018-10-31 12:30 | PDOC PROGRESS REPORT ---
Subjective Progress Note for:: 10/31/18 Subjective:: Soreness of her right heel Reason For Visit: FOREIGN BODY RIGHT HEEL,DM TYPE 2,HYPERTENSION Physical Exam Vital Signs: Temp Pulse Resp BP Pulse Ox 98.5 F 71 16 133/81 H 99 10/31/18 11:54 10/31/18 12:04 10/31/18 12:04 10/31/18 11:54 10/31/18 11:54 Intake & Output 10/30/18 10/31/18 11/01/18 06:59 06:59 06:59 Intake Total 1460 Balance 1460 Weight 70.2 kg General appearance: PRESENT: no acute distress, cooperative Respiratory exam: PRESENT: clear to auscultation tanya Cardiovascular exam: PRESENT: RRR Extremities exam: PRESENT: other - Right heel with subtle swelling but no erythema. Focal tenderness but unable to palpate foreign body. Results Laboratory Results: 10/31/18 05:38 10/31/18 05:38 10/30/18 10/30/18 10/31/18 20:20 20:20 05:38 WBC 18.1 H 12.2 H RBC 4.47 4.17 Hgb 12.4 11.7 L Hct 37.0 34.4 L MCV 83 83 MCH 27.8 28.1 MCHC 33.6 34.1 RDW 13.6 13.5 Plt Count 372 339 Seg Neutrophils % 66.9 58.6 Lymphocytes % 26.2 30.8 Monocytes % 5.2 7.9 Eosinophils % 1.1 2.1 Basophils % 0.6 0.6 Absolute Neutrophils 12.1 H 7.1 Absolute Lymphocytes 4.8 H 3.7 Absolute Monocytes 0.9 1.0 Absolute Eosinophils 0.2 0.3 Absolute Basophils 0.1 0.1 Sodium 137.2 Potassium 3.6 Chloride 104 Carbon Dioxide 27 Anion Gap 6 BUN 13 Creatinine 0.48 L Est GFR ( Amer) > 60 Est GFR (Non-Af Amer) > 60 Glucose 187 H Calcium 9.2 Total Bilirubin 0.3 AST 23 ALT 21 Alkaline Phosphatase 100 Total Protein 7.7 Albumin 4.2 10/31/18 05:38 WBC RBC Hgb Hct MCV MCH MCHC RDW Plt Count Seg Neutrophils % Lymphocytes % Monocytes % Eosinophils % Basophils % Absolute Neutrophils Absolute Lymphocytes Absolute Monocytes Absolute Eosinophils Absolute Basophils Sodium 138.8 Potassium 4.5 Chloride 106 Carbon Dioxide 26 Anion Gap 7 BUN 16 Creatinine 0.46 L Est GFR ( Amer) > 60 Est GFR (Non-Af Amer) > 60 Glucose 173 H Calcium 9.2 Total Bilirubin AST ALT Alkaline Phosphatase Total Protein Albumin Impressions: Foot X-Ray 10/30/18 16:57 IMPRESSION: NO FRACTURE. 4 mm radiopaque foreign body the posterior calcaneal subcutaneous soft tissues. Assessment & Plan - Diagnosis (1) Foreign body (FB) in soft tissue Is this a current diagnosis for this admission?: Yes Plan: The right heel. We will plan foreign body removal with fluoroscopic guidance. I have discussed with the patient the risk and benefits of the procedure including risk of infection, inability to find the foreign body, bleeding, poor wound healing. Patient understands that I will need to make an incision in order to extract the foreign body.
[2018-10-31] MEDS ORDERED: KETAMINE HCL INJ 500 MG/10 ML VIAL ONE (12:36)
[2018-10-31] MEDS ORDERED: CEFAZOLIN INJ 1 GM VIAL ONE (13:43)
[2018-10-31] MEDS ORDERED: PROMETHAZINE HCL INJ 25 MG/1 ML VIAL IV PRN ×2 (13:45)
[2018-10-31] MEDS ORDERED: DIPHENHYDRAMINE HCL 50 MG/ML VIAL IV PRN (13:45)
[2018-10-31] MEDS ORDERED: MEPERIDINE HCL/PF INJ 25 MG/1 ML DISP.SYRIN IV PRN (13:45)
[2018-10-31] MEDS ORDERED: ONDANSETRON HCL INJ/PF 4 MG/2 ML SDV IV PRN (13:45)
--- NOTE | 2018-10-31 13:53 | Operative Report ---
Operative Report DATE OF SURGERY: 10/31/18 PREOPERATIVE DIAGNOSIS: Foreign body of right heel. POSTOPERATIVE DIAGNOSIS: Foreign body of the right heel. OPERATION: Removal of foreign body of right heel under fluoroscopic guidance. SURGEON: AUBREY MOSQUEDA ANESTHESIA: LMAC TISSUE REMOVED OR ALTERED: Fluid from right heel sent for Gram stain and culture. Glass shard removed from right heel. COMPLICATIONS: None ESTIMATED BLOOD LOSS: Minimal INTRAOPERATIVE FINDINGS: 4 mm glass shard in the right heel. After injection of local anesthetic, turbid fluid draining from the right heel. PROCEDURE: Informed consent was obtained. Patient was brought to the operating room and placed on the operating table in the supine position. The procedure was done under LMAC. Patient's right heel was prepped and draped in usual sterile fashion. Local anesthetic was injected near the region of a small wound at her right heel. Fluoroscopy demonstrated that the foreign body was located in this region. This wound was widened with a scalpel. Using fluoroscopic guidance a 4 mm glass shard was removed intact. Fluoroscopy after the removal demonstrated no other foreign body in the heel. During the extraction there was drainage of turbid fluid from the heel. It did not appear clear as would be expected from the fluid draining from the local anesthetic that was injected, therefore this fluid was swabbed for Gram stain and culture. I did not find a discrete abscess pocket in the heel however. The wound was then worked with iodoform gauze and dressings applied. Patient tolerated procedure well with no apparent complications.
[2018-10-31] MEDS ORDERED: DEXTROSE 40% GEL 15 GM TUBE PO PRN ×2 (13:57)
[2018-10-31] MEDS ORDERED: DEXTROSE 50%-WATER 25 GM/50 ML DISP.SYRIN IV PRN ×2 (13:57)
[2018-10-31] MEDS ORDERED: GLUCAGON,HUMAN RECOMB 1 MG INJ IM PRN (13:57)
[2018-10-31] MEDS: INSULIN REG, HUMAN 100 UNIT/ML 3 ML VIAL (PYX) SUBCUT SCH (16:19)
[2018-10-31] MEDS ORDERED: METFORMIN HCL 500 MG TABLET PO SCH (18:00)
--- NOTE | 2018-10-31 18:16 | RADIOLOGY REPORT (SQ) ---
EXAM DESCRIPTION: NO CHG FLUORO; OS CALCIS/HEEL RIGHT COMPLETED DATE/TIME: 10/31/2018 5:31 pm REASON FOR STUDY: FOREIGN BODY REMOVAL RIGHT HEEL ASST WITH FLUORO IN OR COMPARISON: None. FLUOROSCOPY TIME: No measurable time 3 Images saved to PACS LIMITATIONS: None. PROCEDURE: Foreign body removal. FINDINGS: Foreign body removal. Images from fluoro document the procedure. IMPRESSION: Foreign body removal. Refer to operative note for further information. COMMENT: PQRS 6045F: Fluoroscopy time of the procedure is documented in the report. TECHNICAL DOCUMENTATION: JOB ID: [id number] [employer]- All Rights Reserved Reading location - IP/workstation name: [email or web address]
--- NOTE | 2018-10-31 18:16 | RADIOLOGY REPORT (SQ) ---
EXAM DESCRIPTION: NO CHG FLUORO; OS CALCIS/HEEL RIGHT COMPLETED DATE/TIME: 10/31/2018 5:31 pm REASON FOR STUDY: FOREIGN BODY REMOVAL RIGHT HEEL ASST WITH FLUORO IN OR COMPARISON: None. FLUOROSCOPY TIME: No measurable time 3 Images saved to PACS LIMITATIONS: None. PROCEDURE: Foreign body removal. FINDINGS: Foreign body removal. Images from fluoro document the procedure. IMPRESSION: Foreign body removal. Refer to operative note for further information. COMMENT: PQRS 6045F: Fluoroscopy time of the procedure is documented in the report. TECHNICAL DOCUMENTATION: JOB ID: [id number] [employer]- All Rights Reserved Reading location - IP/workstation name: [email or web address]
[2018-10-31] MEDS: METFORMIN HCL 500 MG TABLET PO SCH (18:47)
[2018-10-31] MEDS: PIPERACILLIN SODIUM/TAZOBACTAM 3.375 GM in NORMAL SALINE 100 ML IV SCH (18:52)
--- NOTE | 2018-10-31 23:14 | PDOC PROGRESS REPORT ---
Subjective Progress Note for:: 10/31/18 Subjective:: Feels much better. Much less pain in her foot. Reason For Visit: FOREIGN BODY RIGHT HEEL,DM TYPE 2,HYPERTENSION Physical Exam Vital Signs: Temp Pulse Resp BP Pulse Ox 98.8 F 79 16 108/48 L 100 10/31/18 18:20 10/31/18 18:20 10/31/18 18:20 10/31/18 18:20 10/31/18 18:20 Intake & Output 10/30/18 10/31/18 11/01/18 06:59 06:59 06:59 Intake Total 1460 2395 Output Total 0 Balance 1460 2395 Weight 70.2 kg General appearance: PRESENT: no acute distress, cooperative Cardiovascular exam: PRESENT: RRR Extremities exam: PRESENT: other - Foot with dressings dry and intact. Exposed portion of the foot is nonswollen with no erythema. Results Laboratory Results: 10/31/18 05:38 10/31/18 05:38 10/31/18 10/31/18 05:38 05:38 WBC 12.2 H RBC 4.17 Hgb 11.7 L Hct 34.4 L MCV 83 MCH 28.1 MCHC 34.1 RDW 13.5 Plt Count 339 Seg Neutrophils % 58.6 Lymphocytes % 30.8 Monocytes % 7.9 Eosinophils % 2.1 Basophils % 0.6 Absolute Neutrophils 7.1 Absolute Lymphocytes 3.7 Absolute Monocytes 1.0 Absolute Eosinophils 0.3 Absolute Basophils 0.1 Sodium 138.8 Potassium 4.5 Chloride 106 Carbon Dioxide 26 Anion Gap 7 BUN 16 Creatinine 0.46 L Est GFR ( Amer) > 60 Est GFR (Non-Af Amer) > 60 Glucose 173 H Calcium 9.2 Impressions: Foot X-Ray 10/30/18 16:57 IMPRESSION: NO FRACTURE. 4 mm radiopaque foreign body the posterior calcaneal subcutaneous soft tissues. Fluoroscopy 10/31/18 00:00 IMPRESSION: Foreign body removal. Refer to operative note for further information. Os Calcis X-ray 10/31/18 00:00 IMPRESSION: Foreign body removal. Refer to operative note for further information. Assessment & Plan - Diagnosis (1) Foreign body (FB) in soft tissue Is this a current diagnosis for this admission?: Yes Plan: Status post removal. Patient looks good postoperatively. Will change dressings tomorrow. Continue antibiotics until cultures return from the drainage noted in her foot today intraoperatively.
[2018-11-01] MEDS: PIPERACILLIN SODIUM/TAZOBACTAM 3.375 GM in NORMAL SALINE 100 ML IV SCH ×4 (00:37→18:17)
[2018-11-01 04:48] LABS: ABSOLUTE BASOPHILS # (AUTO) 0.1 10^3/uL (0.0-0.2); ABSOLUTE EOSINOPHILS # (AUTO) 0.2 10^3/uL (0.0-0.6); ABSOLUTE LYMPHOCYTES (AUTO) 3.4 10^3/uL (0.5-4.7); ABSOLUTE MONOCYTES (AUTO) 0.9 10^3/uL (0.1-1.4); ABSOLUTE NEUT (AUTO) 8.3 10^3/uL (1.7-8.2); BASOPHILS % (AUTO) 0.4 % (0-2); EOSINOPHILS % (AUTO) 1.4 % (0-6); HEMATOCRIT 30.5 % (36.0-47.0); HEMOGLOBIN 10.4 g/dL (12.0-15.5); LYMPHOCYTES % (AUTO) 26.4 % (13-45); MEAN CORPUSCULAR HEMOGLOBIN 27.9 pg (27.0-33.4); MEAN CORPUSCULAR HGB CONC 34.2 g/dL (32.0-36.0); MEAN CORPUSCULAR VOLUME 82 fl (80-97); MONOCYTES % (AUTO) 7.3 % (3-13); PLATELET COUNT 294 10^3/uL (150-450); RED BLOOD COUNT 3.73 10^6/uL (3.72-5.28); RED CELL DISTRIBUTION WIDTH 13.5 % (11.5-14.0); SEGMENTED NEUTROPHILS % (AUTO) 64.5 % (42-78); TOTAL CELLS COUNTED % (AUTO) 100 %; WHITE BLOOD COUNT 12.8 10^3/uL (4.0-10.5)
[2018-11-01 04:55] LABS: ANION GAP 7 (5-19); BLOOD UREA NITROGEN 19 mg/dL (7-20); CALCIUM 8.5 mg/dL (8.4-10.2); CARBON DIOXIDE 24 mmol/L (22-30); CHLORIDE 108 mmol/L (98-107); GLUCOSE 181 mg/dL (75-110); POTASSIUM 4.4 mmol/L (3.6-5.0)
[2018-11-01] MEDS: KETOROLAC TROMETHAMINE INJ/PF 30 MG/1 ML SDV IV SCH ×3 (06:10→22:44)
[2018-11-01] MEDS: FENOFIBRATE NANOCRYSTALLIZED 145 MG TABLET PO SCH (09:11)
[2018-11-01] MEDS: INSULIN REG, HUMAN 100 UNIT/ML 3 ML VIAL (PYX) SUBCUT SCH ×3 (09:12→18:12)
[2018-11-01] MEDS: METFORMIN HCL 500 MG TABLET PO SCH ×2 (09:13→18:17)
--- NOTE | 2018-11-01 09:48 | PDOC PROGRESS REPORT ---
Subjective Progress Note for:: 11/01/18 Reason For Visit: FOREIGN BODY RIGHT HEEL,DM TYPE 2,HYPERTENSION Physical Exam Vital Signs: Temp Pulse Resp BP Pulse Ox 98.0 F 68 16 118/72 100 11/01/18 00:23 11/01/18 00:23 11/01/18 00:23 11/01/18 00:23 11/01/18 00:23 Intake & Output 10/31/18 11/01/18 11/02/18 06:59 06:59 06:59 Intake Total 1460 3175 100 Output Total 0 Balance 1460 3175 100 Weight 70.2 kg 76.2 kg General appearance: PRESENT: no acute distress Head exam: PRESENT: normocephalic Eye exam: PRESENT: EOMI Ear exam: PRESENT: normal external ear exam Mouth exam: PRESENT: moist Neck exam: PRESENT: full ROM Respiratory exam: PRESENT: clear to auscultation tanya Cardiovascular exam: PRESENT: RRR Pulses: PRESENT: normal radial pulses, normal femoral pulses, +2 pedal pulses bilateral GI/Abdominal exam: PRESENT: soft Rectal exam: PRESENT: deferred Extremities exam: PRESENT: other - rt heel pack removed still expressing pus from heel Neurological exam: PRESENT: alert, awake, oriented to place Psychiatric exam: PRESENT: anxious Skin exam: PRESENT: dry Results Laboratory Results: 11/01/18 04:13 11/01/18 04:13 11/01/18 11/01/18 04:13 04:13 WBC 12.8 H RBC 3.73 Hgb 10.4 L Hct 30.5 L MCV 82 MCH 27.9 MCHC 34.2 RDW 13.5 Plt Count 294 Seg Neutrophils % 64.5 Lymphocytes % 26.4 Monocytes % 7.3 Eosinophils % 1.4 Basophils % 0.4 Absolute Neutrophils 8.3 H Absolute Lymphocytes 3.4 Absolute Monocytes 0.9 Absolute Eosinophils 0.2 Absolute Basophils 0.1 Sodium 138.6 Potassium 4.4 Chloride 108 H Carbon Dioxide 24 Anion Gap 7 BUN 19 Creatinine 0.58 Est GFR ( Amer) > 60 Est GFR (Non-Af Amer) > 60 Glucose 181 H Calcium 8.5 Impressions: Foot X-Ray 10/30/18 16:57 IMPRESSION: NO FRACTURE. 4 mm radiopaque foreign body the posterior calcaneal subcutaneous soft tissues. Fluoroscopy 10/31/18 00:00 IMPRESSION: Foreign body removal. Refer to operative note for further information. Os Calcis X-ray 10/31/18 00:00 IMPRESSION: Foreign body removal. Refer to operative note for further information. Assessment & Plan - Plan Summary Plan Summary: s/p removal of fb (glass schard) from rt heel now iwth purulent drainage will plan on extending wound at bedside for improved drainage cont iv abx.
[2018-11-01] MEDS: LISINOPRIL 10 MG TABLET PO SCH (10:00)
--- NOTE | 2018-11-01 10:09 | Operative Report ---
Nonrecallable Operative Report PREOPERATIVE DIAGNOSIS: right heel infection POSTOPERATIVE DIAGNOSIS: right heel infection OPERATION: incision and drainage SURGEON: VIPUL ESTEVEZ ANESTHESIA: Local TISSUE REMOVED OR ALTERED: none COMPLICATIONS: none ESTIMATED BLOOD LOSS: 3cc INTRAOPERATIVE FINDINGS: abscess rt heel PROCEDURE: rt heel was prepped a;nd draped aneshtesia with 1 % lidocaine plane previous incision elongated with 15 blade drained apporx 5cc of pus packed with iodoform gauze.
[2018-11-01] MEDS: MELOXICAM 7.5 MG TABLET PO SCH (10:24)
[2018-11-01] MEDS ORDERED: HYDROMORPHONE HCL INJ/PF 2 MG/ML AMPULE IV ONE (10:30)
[2018-11-01 11:13] LABS: VANCOMYCIN,TROUGH < 5.0 ug/mL (5.0-20.0)
[2018-11-01] MEDS: MAGNESIUM SULFATE 454 GM CARTON TP SCH ×2 (13:35→18:17)
[2018-11-01] MEDS ORDERED: MAGNESIUM SULFATE 454 GM CARTON TP SCH (14:00)
[2018-11-01] MEDS: VANCOMYCIN HCL 1,500 MG in DEXTROSE 5%-WATER 250 ML IV SCH ×2 (15:18→22:46)
[2018-11-02] MEDS: PIPERACILLIN SODIUM/TAZOBACTAM 3.375 GM in NORMAL SALINE 100 ML IV SCH ×4 (01:34→20:43)
[2018-11-02] MEDS: KETOROLAC TROMETHAMINE INJ/PF 30 MG/1 ML SDV IV SCH ×3 (05:29→21:40)
[2018-11-02] MEDS: VANCOMYCIN HCL 1,500 MG in DEXTROSE 5%-WATER 250 ML IV SCH ×3 (06:48→23:55)
--- NOTE | 2018-11-02 09:21 | PDOC PROGRESS REPORT ---
Subjective Progress Note for:: 11/02/18 Subjective:: Feels well with much improved heel pain. Reason For Visit: FOREIGN BODY RIGHT HEEL,DM,HYPERTENSION Physical Exam Vital Signs: Temp Pulse Resp BP Pulse Ox 98.5 F 59 L 17 134/78 H 100 11/01/18 23:25 11/01/18 23:25 11/01/18 23:25 11/01/18 23:25 11/01/18 23:25 Intake & Output 11/01/18 11/02/18 11/03/18 06:59 06:59 06:59 Intake Total 3175 1684 Output Total 0 Balance 3175 1684 Weight 76.2 kg 76 kg General appearance: PRESENT: no acute distress, cooperative Respiratory exam: PRESENT: clear to auscultation tanya Cardiovascular exam: PRESENT: RRR Extremities exam: PRESENT: other - Her heel has much less tenderness and no visible swelling and no fluctuance and no drainage and no erythema. The wound is clean. Results Laboratory Results: 11/01/18 04:13 11/01/18 04:13 Impressions: Foot X-Ray 10/30/18 16:57 IMPRESSION: NO FRACTURE. 4 mm radiopaque foreign body the posterior calcaneal subcutaneous soft tissues. Fluoroscopy 10/31/18 00:00 IMPRESSION: Foreign body removal. Refer to operative note for further information. Os Calcis X-ray 10/31/18 00:00 IMPRESSION: Foreign body removal. Refer to operative note for further information. Assessment & Plan - Diagnosis (1) Foreign body (FB) in soft tissue Is this a current diagnosis for this admission?: Yes (2) Infection of right heel Is this a current diagnosis for this admission?: Yes Plan: Secondary to foreign body in a diabetic patient. Status post foreign body removal and drainage of her right heel. Her right heel looks much improved in the last couple of days. Await culture results. Continue broad-spectrum antibiotics.
[2018-11-02] MEDS: LISINOPRIL 10 MG TABLET PO SCH (09:23)
[2018-11-02] MEDS: METFORMIN HCL 500 MG TABLET PO SCH ×2 (09:24→17:58)
[2018-11-02] MEDS: FENOFIBRATE NANOCRYSTALLIZED 145 MG TABLET PO SCH (09:24)
[2018-11-02] MEDS: INSULIN REG, HUMAN 100 UNIT/ML 3 ML VIAL (PYX) SUBCUT SCH ×3 (10:03→18:08)
[2018-11-02] MEDS: MELOXICAM 7.5 MG TABLET PO SCH (10:15)
[2018-11-02] MEDS: MAGNESIUM SULFATE 454 GM CARTON TP SCH ×3 (11:05→20:44)
[2018-11-03] MEDS: PIPERACILLIN SODIUM/TAZOBACTAM 3.375 GM in NORMAL SALINE 100 ML IV SCH (02:39)
[2018-11-03] MEDS: KETOROLAC TROMETHAMINE INJ/PF 30 MG/1 ML SDV IV SCH (05:26)
[2018-11-03 06:27] LABS: ABSOLUTE BASOPHILS # (AUTO) 0.1 10^3/uL (0.0-0.2); ABSOLUTE EOSINOPHILS # (AUTO) 0.3 10^3/uL (0.0-0.6); ABSOLUTE LYMPHOCYTES (AUTO) 2.5 10^3/uL (0.5-4.7); ABSOLUTE MONOCYTES (AUTO) 1.1 10^3/uL (0.1-1.4); ABSOLUTE NEUT (AUTO) 6.2 10^3/uL (1.7-8.2); BASOPHILS % (AUTO) 0.7 % (0-2); EOSINOPHILS % (AUTO) 2.5 % (0-6); HEMATOCRIT 29.6 % (36.0-47.0); HEMOGLOBIN 10.2 g/dL (12.0-15.5); LYMPHOCYTES % (AUTO) 24.7 % (13-45); MEAN CORPUSCULAR HEMOGLOBIN 28.4 pg (27.0-33.4); MEAN CORPUSCULAR HGB CONC 34.5 g/dL (32.0-36.0); MEAN CORPUSCULAR VOLUME 82 fl (80-97); MONOCYTES % (AUTO) 11.1 % (3-13); PLATELET COUNT 311 10^3/uL (150-450); RED CELL DISTRIBUTION WIDTH 13.1 % (11.5-14.0); TOTAL CELLS COUNTED % (AUTO) 100 %; WHITE BLOOD COUNT 10.1 10^3/uL (4.0-10.5)
[2018-11-03] MEDS: INSULIN REG, HUMAN 100 UNIT/ML 3 ML VIAL (PYX) SUBCUT SCH ×2 (08:00→13:19)
[2018-11-03] MEDS ORDERED: PIPERACILLIN SODIUM/TAZOBACTAM 3.375 GM in NORMAL SALINE 100 ML IV SCH (09:00)
--- NOTE | 2018-11-03 09:21 | PDOC DISCHARGE SUMMARY ---
General - Admit/Disc Date/PCP Admission Date/Primary Care Provider: 11/01/18 14:09 Discharge Date: 11/03/18 - Discharge Diagnosis (1) Foreign body (FB) in soft tissue Is this a current diagnosis for this admission?: Yes - Additional Information Resuscitation Status: Full Code Discharge Diet: As Tolerated Discharge Activity: Activity As Tolerated, Keep Legs Elevated, Other - partial wt bearing Home Medications: Fenofibrate Nanocrystallized [Tricor 145 mg Tablet] 145 mg PO DAILY 10/30/18 Lisinopril [Prinivil 10 mg Tablet] 10 mg PO DAILY 10/30/18 Meloxicam [Mobic] 7.5 mg PO DAILY 10/30/18 Metformin HCl [Glucophage] 1,000 mg PO BID 10/30/18 History of Present Illness Patient complains of: foreign body rt heel History of Present Illness: ANGUS SCHRADER is a 48 year old female Hospital Course Hospital Course: pt presented with a glass shard in rt heel on 10/30 was taken to or for removal upon removing it, pus was noted she was admited for iv abx wound was furtger opened on the floor and pt cont on iv abx subsequently it improved pt now without pain wbc wnl cults reveiwed and senstive to augmentin will dc home today on po abx Physical Exam Vital Signs: Temp Pulse Resp BP Pulse Ox 97.9 F 59 L 21 H 145/84 H 97 11/03/18 00:00 11/03/18 00:00 11/03/18 00:00 11/03/18 00:00 11/02/18 20:00 Intake & Output 11/02/18 11/03/18 11/04/18 06:59 06:59 06:59 Intake Total 1684 2130 Output Total 1 Balance 1684 2129 Weight 76 kg 78 kg General appearance: PRESENT: no acute distress Eye exam: PRESENT: EOMI Mouth exam: PRESENT: moist Neck exam: PRESENT: full ROM Pulses: PRESENT: +2 pedal pulses bilateral GI/Abdominal exam: PRESENT: soft Rectal exam: PRESENT: deferred Extremities exam: PRESENT: other - rt heel with less swellilng and cellulitis Psychiatric exam: PRESENT: appropriate affect Skin exam: PRESENT: dry Results Laboratory Results: 11/03/18 06:07 11/01/18 04:13 11/03/18 06:07 WBC 10.1 RBC 3.60 L Hgb 10.2 L Hct 29.6 L MCV 82 MCH 28.4 MCHC 34.5 RDW 13.1 Plt Count 311 Seg Neutrophils % 61.0 Lymphocytes % 24.7 Monocytes % 11.1 Eosinophils % 2.5 Basophils % 0.7 Absolute Neutrophils 6.2 Absolute Lymphocytes 2.5 Absolute Monocytes 1.1 Absolute Eosinophils 0.3 Absolute Basophils 0.1 10/31/18 13:35 Foot - Heel Gram Stain - Final Impressions: Foot X-Ray 10/30/18 16:57 IMPRESSION: NO FRACTURE. 4 mm radiopaque foreign body the posterior calcaneal subcutaneous soft tissues. Fluoroscopy 10/31/18 00:00 IMPRESSION: Foreign body removal. Refer to operative note for further information. Os Calcis X-ray 10/31/18 00:00 IMPRESSION: Foreign body removal. Refer to operative note for further information. Qualifiers - * PATIENT BEING DISCHARGED WITH ANY OF THE FOLLOWING DIAGNOSIS: No Acute Heart Failure - Is this a Heart Failure Patient?: No Plan Time Spent: Less than 30 Minutes - dc home on po abx, augmentin
[2018-11-03] MEDS: LISINOPRIL 10 MG TABLET PO SCH (10:54)
[2018-11-03] MEDS: FENOFIBRATE NANOCRYSTALLIZED 145 MG TABLET PO SCH (10:55)
[2018-11-03] MEDS: METFORMIN HCL 500 MG TABLET PO SCH (10:56)
[2018-11-03] MEDS: MELOXICAM 7.5 MG TABLET PO SCH (10:57)
[2018-11-03] MEDS: VANCOMYCIN HCL 1,500 MG in DEXTROSE 5%-WATER 250 ML IV SCH (10:58)
[2018-11-03] MEDS: MAGNESIUM SULFATE 454 GM CARTON TP SCH (13:09)
[2018-11-03 13:48] VITALS: BP 149/67
== END 2018-11-03 13:15 | disposition home or self-care (01) | DRG 914 ==
LOC: ER 15:45 → INTOOBSV 18:47 → EH 18:47 → 5 21:12 → OBSVTOIN 11-01 14:09
PROVIDERS: ADMIT Surgery; ATTEND Surgery
PROC: 0JCQ0ZZ Extirpation of Matter from Right Foot Subcutaneous Tissue and Fascia, Open Approach (ICD-10-PCS; principal; 2018-10-31 12:15)
PROC: 0J9Q0ZX Drainage of Right Foot Subcutaneous Tissue and Fascia, Open Approach, Diagnostic (ICD-10-PCS; 2018-11-01)
DX: S91.341A Puncture wound with foreign body, right foot, initial encounter (principal); L08.89 Other specified local infections of the skin and subcutaneous tissue; I10 Essential (primary) hypertension; B95.2 Enterococcus as the cause of diseases classified elsewhere; B95.7 Other staphylococcus as the cause of diseases classified elsewhere; B96.89 Other specified bacterial agents as the cause of diseases classified elsewhere; E11.8 Type 2 diabetes mellitus with unspecified complications; F17.210 Nicotine dependence, cigarettes, uncomplicated; W25.XXXA Contact with sharp glass, initial encounter; W45.8XXA Other foreign body or object entering through skin, initial encounter; Y93.89 Activity, other specified; Y92.098 Other place in other non-institutional residence as the place of occurrence of the external cause; Z79.84 Long term (current) use of oral hypoglycemic drugs; Z79.899 Other long term (current) drug therapy
CPT/HCPCS: 01470; 36415; 80048; 80053; 80202; 81025; 82962; 85025; 87040; 87070; 87075; 87077; 87186; 87205; 90471; 90715; 94640; 99284; A6266; G0378; J0690; J1815; J1885; J2250; J2405; J2543; J2704; J3010; J3370; J3490; J7050; J7060; J7120

== ENCOUNTER 2019-05-30 15:37 | Emergency (ER) | payer OTHER ==
[2019-05-30 16:49] VITALS: BP 115/77
--- NOTE | 2019-05-30 17:04 | ER Document Report ---
ED Neck/Back Problem - General Chief Complaint: Back Pain Stated Complaint: BACK PAIN Time Seen by Provider: 05/30/19 16:57 Primary Care Provider: SHAKILA CERRATO PA [Primary Care Provider] - Follow up in 3-5 days Mode of Arrival: Ambulatory Information source: Patient Notes: 48-year-old female presented to ED for complaint of subscapular pain on the right. 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 She has not injured it that she knows of but the pain is been there for about 2 months. She states it is sharp and is increasing in intensity. She is alert oriented respirations regular nonlabored speaking in full sentences. TRAVEL OUTSIDE OF THE [place] IN LAST 30 DAYS: No - HPI Patient complains to provider of: Pain, Upper back Onset: Other - 2 months Where: [place]doors Onset: Gradual Timing: Still present Severity: Moderate Pain Level: 4 Recent injury: Possibly Associated symptoms: Upper back pain - Right subscapular pain there is a Dr. Isbell Exacerbated by: Movement of trunk Relieved by: Nothing Similar symptoms previously: Yes Recently seen / treated by doctor: No - Related Data Allergies/Adverse Reactions: No Known Allergies Allergy (Verified 05/30/19 17:02) Past Medical History - General Information source: Patient - Social History Smoking Status: Current Every Day Smoker Cigarette use (# per day): Yes - 1 to 1-1/2 packs/day Smoking Education Provided: Yes - 4 minutes Frequency of alcohol use: None Drug Abuse: None Occupation: [employer] Lives with: Family Family History: Reviewed & Not Pertinent Patient has suicidal ideation: No Patient has homicidal ideation: No - Past Medical History Cardiac Medical History: Reports: Hx Hypertension Endocrine Medical History: Reports: Hx Diabetes Mellitus Type 2 Renal/ Medical History: Reports: None Malignancy Medical History: Reports: None GI Medical History: Reports: None Musculoskeletal Medical History: Reports None Skin Medical History: Reports None Psychiatric Medical History: Reports: None Traumatic Medical History: Reports: None Infectious Medical History: Reports: None Surgical Hx: Negative Past Surgical History: Reports: None - Immunizations Immunizations up to date: Yes Hx Diphtheria, Pertussis, Tetanus Vaccination: - unknown Review of Systems - Review of Systems Constitutional: No symptoms reported EENT: No symptoms reported Cardiovascular: No symptoms reported Respiratory: No symptoms reported Gastrointestinal: No symptoms reported Genitourinary: No symptoms reported Female Genitourinary: No symptoms reported Musculoskeletal: Back pain - Right subscapular pain Skin: No symptoms reported Hematologic/Lymphatic: No symptoms reported Neurological/Psychological: No symptoms reported -: Yes All other systems reviewed and negative Physical Exam - Vital signs Vitals: Temp Pulse Resp BP Pulse Ox 99.0 F 97 18 115/77 98 05/30/19 16:45 05/30/19 16:45 05/30/19 16:45 05/30/19 16:45 05/30/19 16:45 Interpretation: Normal - General General appearance: Appears well, Alert - HEENT Head: Normocephalic, Atraumatic Eyes: Normal Pupils: PERRL - Respiratory Respiratory status: No respiratory distress Chest status: Nontender Breath sounds: Normal Chest palpation: Normal - Cardiovascular Rhythm: Regular Heart sounds: Normal auscultation Murmur: No - Abdominal Inspection: Normal Distension: No distension Bowel sounds: Normal Tenderness: Nontender Organomegaly: No organomegaly - Back Back: Normal, Tender - Right subscapular - Extremities General upper extremity: Normal inspection, Nontender, Normal color, Normal ROM, Normal temperature General lower extremity: Normal inspection, Nontender, Normal color, Normal ROM, Normal temperature, Normal weight bearing. No: Cassidy's sign - Neurological Neuro grossly intact: Yes Cognition: Normal Orientation: AAOx4 [place] Coma Scale Eye Opening: Spontaneous [place] Coma Scale Verbal: Oriented [place] Coma Scale Motor: Obeys Commands [place] Coma Scale Total: 15 Speech: Normal Motor strength normal: LUE, RUE, LLE, RLE Sensory: Normal - Psychological Associated symptoms: Normal affect, Normal mood - Skin Skin Temperature: Warm Skin Moisture: Dry Skin Color: Normal Course - Re-evaluation Re-evalutation: 05/31/19 02:31 X-ray was negative for any acute changes. Patient was discharged home with subscapular pain diagnosis. She was discharged with prescription for muscle relaxer and instructed that she cannot use the muscle relaxer while working. She was given instructions on warm packs ice packs Tylenol and encouraged to follow-up with her primary care and/or orthopedics. Patient verbalized understanding and agreement with treatment plan. - Vital Signs Vital signs: Temp Pulse Resp BP Pulse Ox 99.0 F 97 18 115/77 98 05/30/19 16:45 05/30/19 16:45 05/30/19 16:45 05/30/19 16:45 05/30/19 16:45 - Diagnostic Test Radiology reviewed: Image reviewed, Reports reviewed Discharge - Discharge Clinical Impression: Subscapular back pain right Condition: Stable Disposition: HOME, SELF-CARE Additional Instructions: MUSCLE STRAIN: You have strained a muscle -- torn the fibers within the muscle. This often occurs with strenuous exertion, or during an injury that suddenly stretches the muscle. The seriousness of a strain varies. Some strains heal within days, others cause problems for months. X-rays cannot show a muscle strain. X-rays are taken only if symptoms suggest that a fracture could be present. The usual treatment of a muscle strain is rest and ice packs. Sometimes, a sling, splint, or crutches may be necessary to rest the muscle. The muscle can be used again once pain subsides. Severe strains require a special exercise and stretching program to prevent permanent stiffness and disability. Your doctor will advise you if this will be necessary. Call the doctor immediately if pain or swelling becomes severe, or if numbness or discoloration develop. USE OF TYLENOL (ACETAMINOPHEN): Acetaminophen may be taken for pain relief or fever control. It's much safer than aspirin, offering a wider range of "safe" dosages. It is safe during . Some brand names are Tylenol, Panadol, Datril, Anacin 3, Tempra, and Liquiprin. Acetaminophen can be repeated every four hours. The following are maximum recommended dosages: WEIGHT Dose Drops Elixir Chewable(80mg) (LBS.) drprs=droppers tsp=teaspoon 6 40 mg 0.4 ml (1/2) 6-11 80 mg 0.8 ml (full) tsp 1 tab 12-16 120 mg 1 1/2 drprs 3/4 tsp 1 1/2 tabs 17-23 160 mg 2 drprs 1 tsp 2 tabs 24-30 240 mg 3 drprs 1 1/2 tsp 3 tabs 30-35 320 mg 2 tsp 4 tabs 36-41 360 mg 2 1/4 tsp 4 1/2 tabs 42-47 400 mg 2 1/2 tsp 5 tabs 48-53 480 mg 3 tsp 6 tabs 54-59 520 mg 3 1/4 tsp 6 1/2 tabs 60-64 560 mg 3 1/2 tsp 7 tabs 65-70 600 mg 3 3/4 tsp 7 1/2 tabs 71-76 640 mg 4 tsp 8 tabs 77-82 720 mg 4 1/2 tsp 9 tabs 83-88 800 mg 5 tsp 10 tabs >89 pounds or adults 650 mg to 900 mg Acetaminophen can be repeated every four hours. Maximum dose not to exceed 4000 mg a day. These maximum recommended dosages are slightly higher than the dosages written on the product container, but these dosages are very safe and below the toxic dosage for acetaminophen. ICE PACKS: Apply ice packs frequently against the painful area. Many different schedules are recommended, such as "20 minutes on, 20 minutes off" or "one hour ice, two hours rest." If you need to work, you may need to go longer between ice treatments. You should plan to have the area ice packed AT LEAST one fourth of the time. The ice should be applied over the wrap, tape, or splint, or over a layer of cloth -- not directly against the skin. Some ice bags have a built-in cloth and can be put directly on the skin. WARM PACKS: After approximately two days, apply gentle heat (such as a heating pad or hot water bottle) for about 20 to 30 minutes about every two hours -- at least four times daily. Warmth and elevation will help you make a more rapid recovery, and will ease the pain considerably. Do not use HOT heat, and never apply heat for longer than 30 minutes. The continuous heat can invisibly damage skin and muscles -- even when no burn is seen on the surface. Damaged muscles can make you MORE sore. MUSCLE RELAXERS: Muscle relaxing medications are usually prescribed for acute muscle spasm or injury to the neck and back. They are often combined with antiinflammatory pain medication for increased relief. You may stop the muscle relaxer when the pain and stiffness have improved. Start the medication again if spasms recur. Muscle relaxers may cause drowsiness, especially with the first dose. Do not operate machinery or drive while under the effects of the medication. Most muscle relaxers last up to 24 hours. Do not combine the medication with alcohol. FOLLOW-UP CARE: If you have been referred to a physician for follow-up care, call the physicians office for an appointment as you were instructed or within the next two days. If you experience worsening or a significant change in your symptoms, notify the physician immediately or return to the Emergency Department at any time for re-evaluation. Prescriptions: Methocarbamol [Robaxin 500 mg Tablet] 500 mg PO BIDP PRN #14 tablet PRN Reason: Forms: Special Work Note, Smoking Cessation Education Referrals: SHAKILA CERRATO PA [Primary Care Provider] - Follow up in 3-5 days
--- NOTE | 2019-05-30 17:21 | RADIOLOGY REPORT (SQ) ---
EXAM DESCRIPTION: CHEST 2 VIEWS COMPLETED DATE/TIME: 05/30/2019 5:12 pm REASON FOR STUDY: Subscapular back pain COMPARISON: 07/03/2015 EXAM PARAMETERS: NUMBER OF VIEWS: two views TECHNIQUE: Digital Frontal and Lateral radiographic views of the chest acquired. RADIATION DOSE: NA LIMITATIONS: none FINDINGS: LUNGS AND PLEURA: No opacities, masses or pneumothorax. No pleural effusion. MEDIASTINUM AND HILAR STRUCTURES: No masses or contour abnormalities. HEART AND VASCULAR STRUCTURES: Heart normal size. No evidence for failure. BONES: No acute findings. HARDWARE: None in the chest. OTHER: No other significant finding. IMPRESSION: No evidence of acute cardiopulmonary process. TECHNICAL DOCUMENTATION: JOB ID: [id number] 2010 [employer]- All Rights Reserved Reading location - IP/workstation name: [email or web address]
== END 2019-05-30 18:40 | disposition home or self-care (01) ==
LOC: ER 15:37
DX: M54.6 Pain in thoracic spine (principal); M54.9 Dorsalgia, unspecified; F17.210 Nicotine dependence, cigarettes, uncomplicated; E11.9 Type 2 diabetes mellitus without complications; I10 Essential (primary) hypertension
CPT/HCPCS: 71046; 99283; 99406

== ENCOUNTER → 2019-05-30 | Outpatient (CLI) | payer OTHER ==
--- NOTE | 2019-05-30 17:14 | WOMENS IMAGING REPORT ---
EXAM DESCRIPTION: 3D SCREENING MAMMO BILAT COMPLETED DATE/TIME: 05/30/2019 4:33 pm REASON FOR STUDY: Z12.31 SCREENING MAMMO Z12.31 ENCNTR SCREEN MAMMOGRAM FOR MALIGNANT NEOPLASM OF B RE COMPARISON: None. EXAM PARAMETERS: Views: Standard craniocaudal and mediolateral oblique views of each breast recorded using digital acquisition and breast tomosynthesis. Read with the assistance of CAD. .[facility] - [facility] Nurse Version 9.2 LIMITATIONS: None. FINDINGS: No suspicious masses, suspicious calcifications or architectural distortion. No areas of c oncern. IMPRESSION: NEGATIVE MAMMOGRAM. BIRADS 1. BREAST DENSITY: b. There are scattered areas of fibroglandular density. BIRAD: ASSESSMENT: 1 NEGATIVE RECOMMENDATION: ROUTINE SCREENING COMMENT: The patient has been notified of the results by letter per MQSA requirements. Additional no tification policies are in place for contacting patient with suspicious or incomplete findings. Quality ID #225: The [employer] recommends an annual screening mammogram for women aged 40 years or over. This facility utilizes a reminder system to ensure that all patients receive reminder letters, and/or direct phone calls for appointments. This includes reminders for routine scr eening mammograms, diagnostic mammograms, or other Breast Imaging Interventions when appropriate. Th is patient will be placed in the appropriate reminder system. TECHNICAL DOCUMENTATION: FINDING NUMBER: (1) ASSESSMENT: (1) JOB ID: [id number] 2010 [employer]- All Rights Reserved Reading location - IP/workstation name: [email or web address]
== END ==
LOC: WI 15:05
PROVIDERS: ATTEND Physician Assistant
DX: Z12.31 Encounter for screening mammogram for malignant neoplasm of breast (principal)
CPT/HCPCS: 77063; 77067

== ENCOUNTER 2020-04-04 15:40 | Emergency (ER) | payer OTHER ==
[2020-04-04] MEDS ORDERED: ACETAMINOPHEN 325 MG TABLET PO ONE (16:19)
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
[2020-04-04 16:57] LABS: ABSOLUTE BASOPHILS # (AUTO) 0.1 10^3/uL (0.0-0.2); ABSOLUTE EOSINOPHILS # (AUTO) 0.1 10^3/uL (0.0-0.6); ABSOLUTE LYMPHOCYTES (AUTO) 3.3 10^3/uL (0.5-4.7); ABSOLUTE MONOCYTES (AUTO) 0.7 10^3/uL (0.1-1.4); ABSOLUTE NEUT (AUTO) 7.3 10^3/uL (1.7-8.2); BASOPHILS % (AUTO) 0.7 % (0-2); EOSINOPHILS % (AUTO) 1.2 % (0-6); HEMATOCRIT 42.9 % (36.0-47.0); HEMOGLOBIN 14.9 g/dL (12.0-15.5); LYMPHOCYTES % (AUTO) 28.5 % (13-45); MEAN CORPUSCULAR HEMOGLOBIN 28.3 pg (27.0-33.4); MEAN CORPUSCULAR HGB CONC 34.8 g/dL (32.0-36.0); MEAN CORPUSCULAR VOLUME 81 fl (80-97); MONOCYTES % (AUTO) 6.2 % (3-13); PLATELET COUNT 276 10^3/uL (150-450); RED BLOOD COUNT 5.28 10^6/uL (3.72-5.28); RED CELL DISTRIBUTION WIDTH 13.3 % (11.5-14.0); SEGMENTED NEUTROPHILS % (AUTO) 63.4 % (42-78); TOTAL CELLS COUNTED % (AUTO) 100 %; WHITE BLOOD COUNT 11.5 10^3/uL (4.0-10.5)
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
[2020-04-04 17:22] LABS: ALBUMIN 4.3 g/dL (3.5-5.0); ALKALINE PHOSPHATASE 167 U/L (38-126); ANION GAP 10 (5-19); ASPARTATE AMINO TRANSFERASE 19 U/L (14-36); BILIRUBIN,DIRECT 0.2 mg/dL (0.0-0.4); BILIRUBIN,TOTAL 0.4 mg/dL (0.2-1.3); BLOOD UREA NITROGEN 23 mg/dL (7-20); CALCIUM 9.8 mg/dL (8.4-10.2); CARBON DIOXIDE 25 mmol/L (22-30); CHLORIDE 100 mmol/L (98-107); GLUCOSE 381 mg/dL (75-110); POTASSIUM 4.9 mmol/L (3.6-5.0); TOTAL PROTEIN 7.8 g/dL (6.3-8.2)
[2020-04-04] MEDS ORDERED: ACETAMINOPHEN 325 MG TABLET ONE (20:25)
[2020-04-04 22:58] VITALS: BP 142/78
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
== END 2020-04-05 01:09 | disposition home or self-care (01) ==
LOC: ER 15:40
DX: S01.111A Laceration without foreign body of right eyelid and periocular area, initial encounter (principal); V43.62XA Car passenger injured in collision with other type car in traffic accident, initial encounter; F17.200 Nicotine dependence, unspecified, uncomplicated; I10 Essential (primary) hypertension; E11.9 Type 2 diabetes mellitus without complications; Z79.899 Other long term (current) drug therapy
CPT/HCPCS: 36415; 70450; 72125; 80053; 85025; 99284